=== PATIENT | female | born 1960 | race Caucasian/White ===

== ENCOUNTER 2018-03-18 06:49 | Emergency (ER) | payer OTHER ==
[~2018-03-18] VITALS: Ht 162.6 cm; Wt 58.1 kg
[2018-03-18] MEDS ORDERED: LIDOCAINE-MPF 2%, 2ML ONE (07:15)
[2018-03-18] MEDS ORDERED: OXYcodone/APAP 5/325MG TABLET ONE (07:17)
[2018-03-18] MEDS ORDERED: OXYcodone/APAP 5/325MG TABLET PO ONE (07:30)
[2018-03-18] MEDS ORDERED: LIDOCAINE-MPF 2%, 2ML INFIL ONE (07:30)
[2018-03-18 10:34] VITALS: BP 151/79
== END 2018-03-18 10:37 | disposition home or self-care (01) ==
LOC: ED 09:22
DX: S01.81XA Laceration without foreign body of other part of head, initial encounter (principal); G89.11 Acute pain due to trauma; M25.562 Pain in left knee; S03.2XXA Dislocation of tooth, initial encounter; W07.XXXA Fall from chair, initial encounter; Y93.89 Activity, other specified; Y92.410 Unspecified street and highway as the place of occurrence of the external cause; Y99.8 Other external cause status
CPT/HCPCS: 12011; 70450; 70486; 99284